=== PATIENT | male | born 1965 | race Two or more races ===

== ENCOUNTER → 2024-10-17 | Outpatient (BNVA) | payer MEDICARE, MEDICAID, SELFPAY | END | disposition home or self-care (01) | PROVIDERS: PCP Internal Medicine Hematology & Oncology; Referring Provider Internal Medicine Hematology & Oncology; Visit Provider Urology | DX: N40.1 Benign prostatic hyperplasia with lower urinary tract symptoms (principal); N13.8 Other obstructive and reflux uropathy; N31.9 Neuromuscular dysfunction of bladder, unspecified; E66.9 Obesity, unspecified; Z68.41 Body mass index [BMI] 40.0-44.9, adult; I10 Essential (primary) hypertension; E78.00 Pure hypercholesterolemia, unspecified | CPT/HCPCS: 81003; 99212; G0463 ==

== ENCOUNTER 2024-11-02 21:19 | Emergency (ER) | payer MEDICARE, MEDICAID, SELFPAY ==
[2024-11-02 21:20] VITALS: BMI 34.4
--- NOTE | 2024-11-02 22:26 | PD.EDWOUND ---
ED Wound/Laceration-RME/HPI General Chief Complaint: Wound/Laceration Stated Complaint: TRIP AND FALL, LAC TO RIGHT EYEBROW Time Seen by Provider: 11/02/24 21:59 Arrival date/time: 11/02/24 21:19 RME / HPI RME / HPI narrative: 59-year-old male patient came in for evaluation regarding right eyebrow laceration. Patient tripped and fell and hit the right eyebrow with binder resulting to 1 cm gaping laceration to the right eyebrow. Denies any LOC denies any nausea or vomiting denies any neck pain patient is ambulatory. Tetanus vaccination is unknown. Related Data Home Medications ?Medication ?Instructions ?Recorded ?Confirmed atorvastatin 10 mg tablet (Lipitor) 10 mg PO HS #0 tabs 06/23/16 10/17/24 docusate sodium 250 mg capsule 250 mg PO BID #0 caps 06/23/16 10/17/24 (DOK) tamsulosin 0.4 mg capsule (Flomax) 0.4 mg PO QDAY ##0 03/05/17 10/17/24 Lactobacillus acidophilus 1 tab PO QDAY 02/06/18 10/17/24 (Acidophilus chewable tablet) ascorbic acid (vitamin C) 1,000 mg 1,000 mg PO DAILY 02/06/18 10/17/24 tablet (Vitamin C) finasteride 5 mg tablet 5 mg PO QDAY 11/16/19 10/17/24 nitrofurantoin 100 mg PO DIRECTED 05/20/21 10/17/24 monohydrate/macrocrystals 100 mg capsule (Macrobid) clobetasol 0.05 % topical cream 1 applic topical .PRN PRN 10/17/24 10/17/24 hydrocortisone 2.5 % topical cream 1 applic topical .PRN PRN 10/17/24 10/17/24 ketoconazole 2 % topical cream 1 applic topical QDAY PRN 10/17/24 10/17/24 Allergies Allergy/AdvReac Type Severity Reaction Status Date / Time No Known Allergies Allergy Verified 10/17/24 10:21 Review of Systems Review of Systems Narrative Review of Systems: Review of system reviewed and within normal limits except mentioned in HPI ED Exam Narrative Physical exam: VITAL SIGNS: Reviewed. GENERAL APPEARANCE: Alert and interactive, follows commands, no acute distress, HEAD AND FACE: 1 cm gaping laceration right eyebrow ENT: PERRL, pink conjunctivitis, eyelid no trauma, Mucous membrane moist. Full range of motion of the extraocular muscle. Bilateral NECK: Supple, nontender, no nuchal rigidity. CHEST: No tenderness, no crepitus, no paradoxical movement, no retractions. LUNGS: Clear, well ventilated, symmetric, no rales, no wheezing, no ronchi, no stridor, good breath sounds bilaterally. HEART: Regular rate, regular rhythm, no murmur, no gallops. ABDOMEN: Soft, positive bowel sounds, nondistended, no guarding, nontender, no rebound, no masses, RECTAL: Deferred. GENITAL: Deferred. NEUROLOGICAL: Gross motor function intact sensory function intact, Appropriate for age. MUSCULOSKELETAL: low back nontender, full range of motion. EXTREMITIES: Nontender, full range of motion. SKIN: Color pink, dry, no rash, no lacerations, no abrasions, no contusions. LYMPHATICS: Deferred. Course Quality Measures none Orders Category Date Time Status Lidocaine 1% 20 ml [Xylocaine 1% 20 ML] Med 11/02/24 22:25 Discontinued 10 ml IM X1 ONE Tet,Diphth,Pertuss(Acell)-Tdap [Boostrix Vacc] Med 11/02/24 22:25 Discontinued 0.5 ml IMI .ONCE ONE Vital Signs Vital signs: Vital Signs Temperature 98.5 F 11/02/24 22:29 Pulse Rate 87 11/02/24 22:29 Respiratory Rate 18 11/02/24 22:29 Blood Pressure 118/68 11/02/24 22:29 Pulse Oximetry (%) 99 11/02/24 22:29 Oxygen Delivery Method Room Air 11/02/24 22:29 Procedures -ED Laceration Laceration 1: Site: face Side (If applicable): right Size (cm): 1 Description: linear Depth: simple, single layer Local Anesthetic: lidocaine 1% Amount of anesthesia used (mL): 5 Pre-repair: wound explored, irrigated extensively and deep structures intact Skin layer closed with: nylon Size (cm): 5-0 Number of sutures: 3 Technique: simple, interrupted Wound / Laceration MDM Narrative MDM Narrative:: 59-year-old male patient came in for evaluation regarding right eyebrow laceration. Patient tripped and fell and hit the right eyebrow with binder resulting to 1 cm gaping laceration to the right eyebrow. Denies any LOC denies any nausea or vomiting denies any neck pain patient is ambulatory. Tetanus vaccination is unknown. Imaging is not that this time patient is not having any LOC, no nausea no vomiting noted. Denies any complaints. Patient data External records reviewed:: None Clinical information provided by:: patient Social determinants that could affect healthcare access:: none Patient has the following chronic illnesses:: None How is presenting disease/condition affected by chronic disease/condition?: no chronic disease Evaluation data The following diagnostics were reviewed and interpreted by me:: lab results and radiology exam(s) Lab and/or radiology exams considered but not ordered:: None Interpretation Summary: None Medications / Prescriptions Medications or Prescriptions considered but not ordered:: None Medication administrations:: Medication Administration History Discontinued Medications Diphtheria/Tetanus/Acell Pertussis (Diphth,Pertuss(Acell),Tet Vac 0.5 Ml Syr) 0.5 ml IMi .ONCE ONE Stop: 11/02/24 22:26 Last Admin: 11/02/24 22:35 Dose: 0.5 ml Documented By: SUNNY Lidocaine HCl (Lidocaine Hcl 1% 20 Ml Vial) 10 ml IM X1 ONE Stop: 11/02/24 22:26 Last Admin: 11/02/24 22:36 Dose: 10 ml Documented By: SUNNY Boostrix Consultations Consultation(s) initiated? (list below): No Consultation #1 (Physician, Specialty, Details): None Diagnosis Wound Differential Diagnosis: laceration, abrasion and avulsion of skin Most likely diagnosis given after review of the tests above:: eyebrow laceration Admission Indicated Admission indicated?: not indicated Explain why admission is indicated or not indicated:: Stable Admission Request Was there a request for admission?: No Disposition Plan Disposition Plan: Discharge Discharge Attestation Discharge Attestation: The patient and all family members were given an opportunity to ask questions and understood the discharge instructions. Discharge instructions specifically effects, indications for sooner follow up or return to the emergency department, and the expected course of current diagnosis. Patient condition: Stable Discharge Plan Plan Patient Disposition: HOME (Self Care) Disposition Comment: stable Prescriptions/Referrals Prescriptions/Med Rec: No Action finasteride 5 mg tablet 5 mg PO QDAY hydrocortisone 2.5 % cream 1 applic topical .PRN PRN ketoconazole 2 % cream 1 applic topical QDAY PRN clobetasol 0.05 % cream 1 applic topical .PRN PRN nitrofurantoin monohyd/m-cryst [Macrobid] 100 mg capsule 100 mg PO DIRECTED Rx Instructions: must administer with a meal/food atorvastatin [Lipitor] 10 MG tablet 10 mg PO HS Qty: 0 docusate sodium [DOK] 250 MG capsule 250 mg PO BID Qty: 0 tamsulosin [Flomax] 0.4 MG capsule,extended release 24hr 0.4 mg PO QDAY Qty: 0 ascorbic acid (vitamin C) [Vitamin C] 1,000 mg Tablet 1,000 mg PO DAILY Lactobacillus acidophilus [Acidophilus] Tablet,Chewable 1 tab PO QDAY Problem List Clinical Impression: Laceration of eyebrow, right Patient/Caregiver Discharge Instructions Discharge Activity: activity as tolerated Education Materials: ED Laceration: All Closures Additional Instructions: Thank you for the opportunity for serving you today. You are stable for discharged . You are advised to: Follow-up with your PCP in 1 to 2 days Return to ED for worsening of symptoms Increase oral fluids For removal of sutures in 7 days Daily dressing with bacitracin. Print Language: Mohawk Stand Alone Forms: [facility] Award Info., Patient Portal Info Letter PA/RONALDO Supervising Physician PA/RONALDO Supervising Physician: MD Davis
[2024-11-02 22:29] VITALS: BP 118/68; PULSE 87; RESP 18; TEMP 36.9; O2SAT 99
[2024-11-02] MEDS: DIPHTH,PERTUSS(ACELL),TET VAC 0.5 ML SYR IMi (22:35)
[2024-11-02] MEDS: LIDOCAINE HCL 1% 20 ML VIAL 10 ML IM (22:36)
== END 2024-11-03 00:05 | disposition home or self-care (01) ==
LOC: SERX 11-03 00:15
PROVIDERS: Emergency Provider Emergency Medicine; PCP Internal Medicine Hematology & Oncology
DX: S01.111A Laceration without foreign body of right eyelid and periocular area, initial encounter (principal); Z23 Encounter for immunization; W01.0XXA Fall on same level from slipping, tripping and stumbling without subsequent striking against object, initial encounter
CPT/HCPCS: 12011; 90471; 90715; 99283; J3490

== ENCOUNTER → 2024-12-12 | Outpatient (CLI) | payer MEDICARE, MEDICAID, SELFPAY ==
[2024-12-12 10:30] LABS: Collection Type, Urine Clean Catch
[2024-12-12 11:10] LABS: Basophils % (Auto) 1 % (0-2.5); Eosinophils % (Auto) 1 % (0-10); Hematocrit 41.4 % (41.0-53.0); Hemoglobin 13.9 g/dL (13.5-16.0); Immature Granulocytes % (Auto) 0 % (0-0); Immature Granulocytes Auto 0.01 Thou/mm3 (0.00-0.00); Lymphocytes # (Auto) 1.8 Thou/mm3 (1.0-4.8); Lymphocytes % (Auto) 45 % (10-50); Mean Corpuscular HGB Conc 33.6 g/dl (31.0-37.0); Mean Corpuscular Hemoglobin 32.9 pg (25.0-35.0); Mean Corpuscular Volume 98 fL (80-100); Monocytes # (Auto) 0.3 Thou/mm3 (0.0-0.8); Monocytes % (Auto) 7 % (0-12); Neutrophils # (Auto) 1.9 Thou/mm3 (1.8-7.7); Neutrophils % (Auto) 46 % (37-80); Nucleated Red Blood Cell % 0 /100 WBC (0); Platelet Count 171 Thou/mm3 (140-440); RDW Standard Deviation 49.5 fL (35.1-43.9); Red Blood Count 4.22 Miln/mm3 (4.50-5.90); White Blood Count 4.1 Thou/mm3 (3.8-10.6)
[2024-12-12 11:20] LABS: Bacteria,Urine Rare; Bilirubin,Urine Negative (Negative); Blood,Urine Negative (Negative); Clarity,Urine Clear (Clear/Hazy); Color,Urine Lt-Yellow (Lt Yel-Yel); Glucose, Urine Negative (Negative); Ketones,Urine Negative (Negative); Leukocyte Esterase,Urine Positive (Negative); Nitrite,Urine Negative (Negative); PH,Urine 6.5 (5.0-7.0); Protein,Urine Negative (Neg - Trace); RBC,Urine 2 /hpf (0-3); Specific Gravity,Urine 1.011 (1.001-1.035); Squamous Epithelial Cell,Urine 4 /hpf (0-5); Urobilinogen,Urine Negative mg/dL (0.0-1.0); WBC,Urine 88 /hpf (0-5)
[2024-12-12 11:29] LABS: Alanine Aminotransferase 12 U/L (10-49); Albumin, Serum 3.9 gm/dL (3.5-5.0); Alkaline Phosphatase 73 U/L (46-116); Anion Gap 8 (7-16); Aspartate Amino Transferase 14 U/L (0-34); BUN/Creatinine Ratio 14 Ratio (12-20); Bilirubin,Direct 0.1 mg/dL (0.0-0.3); Bilirubin,Total 0.4 mg/dL (0.3-1.2); Blood Urea Nitrogen 15 mg/dL (9-23); Calcium 8.7 mg/dL (8.3-10.6); Carbon Dioxide 28.8 mMol/L (20.0-31.0); Cardiac Risk Estimate 3.3 RATIO (4.0-6.7); Chloride 105 mMol/L (98-107); Cholesterol 155 mg/dL (132-200); Creatinine (Component) 1.1 mg/dL (0.6-1.3); Glucose 105 mg/dL (74-106); HDL Cholesterol 47 mg/dL (40-60); LDL Cholesterol,Calculated 76 mg/dL (0-130); Osmolality,Calculated 283 (275-295); Potassium 4.5 mMol/L (3.4-5.1); Sodium 142 mMol/L (136-145); Total Protein 6.9 gm/dL (5.7-8.2); Triglycerides 159 mg/dL (30-150); Vitamin D 25 Hydroxy Total 40.3 ng/mL (7.3-40.2); eGFR > 60 See Note
== END | disposition home or self-care (01) ==
LOC: COPL 10:02
PROVIDERS: PCP Internal Medicine Hematology & Oncology; Referring Provider Internal Medicine Hematology & Oncology; Visit Provider Internal Medicine Cardiovascular Disease
DX: E07.9 Disorder of thyroid, unspecified (principal); E78.5 Hyperlipidemia, unspecified; I10 Essential (primary) hypertension
CPT/HCPCS: 36415; 80048; 80061; 80076; 81001; 82306; 84439; 84443; 85025; 87086